=== PATIENT | male | born 1950 | race Hispanic/Latino ===

== ENCOUNTER 2016-08-23 08:02 | Day surgery (SDC) | payer OTHER ==
[2016-08-23] MEDS ORDERED: LR 1,000 ML ONE ×2 (09:03→11:17)
[2016-08-23] MEDS ORDERED: PEPCID ONE (09:03)
[2016-08-23] MEDS ORDERED: KEFZOL 1 GM/D5W 50 ML ONE (09:04)
[2016-08-23] MEDS ORDERED: REGLAN ONE (09:04)
[2016-08-23] MEDS ORDERED: XYLOCAINE 1%/EPI 1:100,000 ONE (09:46)
[2016-08-23] MEDS ORDERED: MARCAINE 0.25% PF/EPI 1:200,000 ONE (09:46)
[2016-08-23] MEDS ORDERED: FENTANYL ONE (10:57)
[2016-08-23] MEDS ORDERED: DIPRIVAN 1% ONE (10:57)
[2016-08-23] MEDS: MORPHINE ONE ×2 (11:05→11:12)
[2016-08-23] MEDS ORDERED: SODIUM CHLORIDE 0.9% 10 ML ONE (11:16)
[2016-08-23] MEDS ORDERED: NEOSTIGMINE ONE (11:16)
[2016-08-23] MEDS ORDERED: ZOFRAN ONE (11:16)
[2016-08-23] MEDS ORDERED: DECADRON ONE (11:17)
[2016-08-23] MEDS ORDERED: NORCURON ONE (11:17)
[2016-08-23] MEDS ORDERED: ROBINUL ONE (11:17)
[2016-08-23] MEDS ORDERED: QUELICIN (DOSE) ONE (11:17)
[2016-08-23] MEDS ORDERED: EPHEDRINE ONE (11:17)
[2016-08-23] MEDS ORDERED: XYLOCAINE-MPF 2% ONE (11:17)
[2016-08-23] MEDS ORDERED: NORCO-10 ONE (11:41)
[2016-08-23 12:02] VITALS: BP 176/81
--- NOTE | 2016-08-23 17:00 | OPERATIVE NOTE ---
PROCEDURE DATE: 08/23/2016 PREOP: Right inguinal hernia. POSTOP: Direct type. PROCEDURE: Repair with large plug and overlay. DESCRIPTION OF PROCEDURE: The patient was brought to the operating room. After satisfactory induction of IV and LMA anesthesia, Berg catheter was placed. His right groin was subsequently prepped and draped in the appropriate manner. An oblique incision was made between the anterior superior iliac spine and pubic tubercle with dissection taken down through the subcutaneous tissue. Hemostasis was obtained by electrocautery. The fascia of the external oblique was incised in the pathway of its fibers down to and opening the external inguinal ring. Cord structures were mobilized. Is a fairly large cord lipoma there was amputated. There appeared to be a direct weakness but no indirect hernia sac. The large mesh plug was taken to the leading edge of the direct weakness and inverted and sewn to surrounding transversalis and inguinal ligament with 0 Surgilon. The mesh overlay was subsequently placed beneath the cord and likewise sewn in with 0 Surgilon. On completion, the reconstructed floor appeared to be strong. The external oblique was closed with interrupted 3-0 Vicryl after infiltration with 10 mL of Marcaine. The subcutaneous was infiltrated with another 10 mL of Marcaine and closed with 3-0 Vicryl and the skin itself with stainless steel clips. Sterile dressing was applied. The patient was awakened and extubated in the operating room. Berg catheter was removed. She was transferred to recovery.
== END 2016-08-23 12:19 | disposition home or self-care (01) ==
LOC: OPS 08:02
PROVIDERS: ATTEND Surgery
DX: K40.90 Unilateral inguinal hernia, without obstruction or gangrene, not specified as recurrent (principal); D17.6 Benign lipomatous neoplasm of spermatic cord; I10 Essential (primary) hypertension; M19.90 Unspecified osteoarthritis, unspecified site; B19.20 Unspecified viral hepatitis C without hepatic coma; F17.210 Nicotine dependence, cigarettes, uncomplicated
CPT/HCPCS: 88304; J0330; J0690; J1100; J2270; J2405; J3010; J7120; J2710; S0020